=== PATIENT | female | born 1955 | race African-American/Black ===

== ENCOUNTER 2024-06-18 22:00 | Inpatient (IN) | payer MEDICARE, OTHER, MEDICAID ==
[~2024-06-18] VITALS: Ht 162.6 cm; Wt 73.9 kg
[2024-06-18 22:00] VITALS: BP 123/63; PULSE 80; RESP 18; TEMP 99.9; O2SAT 98
[2024-06-18 22:45] VITALS: BP 123/63; PULSE 80; RESP 18; TEMP 99.9
[2024-06-18] MEDS ORDERED: LORAZEPAM 0.5MG TABLET PO PRN (22:45)
[2024-06-18] MEDS ORDERED: ACETAMINOPHEN 325MG TABLET PO PRN (22:45)
[2024-06-18] MEDS ORDERED: CLONIDINE 0.1MG TABLET PO PRN (22:45)
[2024-06-18] MEDS ORDERED: SENNOSIDES 8.6MG TABLET PO PRN (22:45)
[2024-06-18] MEDS ORDERED: ONDANSETRON HCL 4MG TABLET PO PRN (22:45)
[2024-06-18] MEDS ORDERED: DEXTROSE 50% WATER 50ML SYRINGE IV PRN (23:00)
[2024-06-19] MEDS: SODIUM CHLORIDE 0.9% 3ML FLUSH IVF SCH (06:00)
[2024-06-19] MEDS: BLOOD SUGAR DIAGNOSTIC STRIP TEST SCH (06:30)
[2024-06-19 07:58] LABS: BASOPHILS % 0.5 % (0.0-2.0); EOSINOPHILS % 0.5 % (0.0-5.0); HEMATOCRIT. 28.8 % (36.0-48.0); HEMOGLOBIN. 9.6 g/dL (12.0-16.0); LYMPHOCYTES % 30.6 % (20.0-50.0); MEAN CORPUSCULAR HEMOGLOBIN 30.9 pg (28.0-32.0); MEAN CORPUSCULAR HGB CONC 33.3 g/dL (31.0-37.0); MEAN CORPUSCULAR VOLUME 92.8 fL (81.0-99.0); NEUTROPHILS % 61.4 % (40.0-76.0); PLATELET 253 x1000/uL (130-400); RED CELL DISTRIBUTION WIDTH 12.7 % (11.6-14.6); WHITE BLOOD COUNT 7.2 x1000/uL (4.5-11.0)
[2024-06-19 08:00] VITALS: BP 137/76; PULSE 84; RESP 19; TEMP 97.7; O2SAT 98
[2024-06-19 08:04] LABS: CHLORIDE 109 mEq/L (98-107); POTASSIUM 4.1 mEq/L (3.5-5.1); SODIUM 140 mEq/L (136-145)
[2024-06-19 08:05] LABS: CARBON DIOXIDE 23 mEq/L (21-32)
[2024-06-19 08:10] LABS: CREATININE 1.5 mg/dL (0.6-1.0); GLUCOSE 190 mg/dL (70-105)
[2024-06-19 08:11] LABS: UREA NITROGEN BLOOD 22 mg/dL (9-23)
[2024-06-19 08:12] LABS: ALANINE AMINOTRANSFERASE 21 IU/L (10-49); ALBUMIN 4.6 g/dL (3.2-4.8); ASPARTATE AMINOTRANSFERASE 20 IU/L (<34)
[2024-06-19 08:13] LABS: BILIRUBIN TOTAL 0.3 mg/dL (0.1-1.0); PROTEIN TOTAL 6.9 g/dL (6.0-8.3)
[2024-06-19] MEDS: AMLODIPINE 5MG TABLET PO SCH (09:49)
[2024-06-19] MEDS: DOCUSATE SODIUM SUGAR FREE 100MG/10ML UDC NG SCH (09:49)
[2024-06-19] MEDS: PANTOPRAZOLE 40MG DR TABLET PO SCH (09:49)
[2024-06-19] MEDS: INSULIN LISPRO 100 UNITS/ML SUBCUT SCH (09:55)
[2024-06-19] MEDS: LORAZEPAM 0.5MG TABLET PO PRN (12:38)
[2024-06-19] MEDS: ACETAMINOPHEN 325MG TABLET PO PRN (17:49)
[2024-06-19 20:00] VITALS: BP 119/57; PULSE 81; RESP 18; TEMP 98.2; O2SAT 99
[2024-06-19] MEDS: ATORVASTATIN CALCIUM 40MG TABLET PO SCH (20:55)
[2024-06-19] MEDS: HYDROCODONE/ACETAMINOPHEN 5/325MG TABLET PO PRN (21:07)
[2024-06-20 08:00] VITALS: BP 135/71; PULSE 81; RESP 20; TEMP 97.6; O2SAT 100
[2024-06-20] MEDS: LACTULOSE 20G/30ML UDC PO NR (19:08)
[2024-06-20 20:00] VITALS: BP 130/70; PULSE 89; RESP 19; TEMP 97.9; O2SAT 96
[2024-06-20] MEDS: LORAZEPAM 0.5MG TABLET PO PRN (23:32)
[2024-06-21 08:06] VITALS: BP 129/59; PULSE 83; RESP 18; TEMP 97.8; O2SAT 99
[2024-06-21] MEDS: LACTULOSE 20G/30ML UDC PO PRN (08:09)
[2024-06-21] MEDS ORDERED: NALOXONE HCL 0.4MG/ML VIAL IV PRN (12:00)
[2024-06-21 20:00] VITALS: BP 134/81; PULSE 93; RESP 20; TEMP 97.9; O2SAT 98
[2024-06-21] MEDS: GABAPENTIN 300MG CAPSULE PO SCH (21:43)
[2024-06-22 08:00] VITALS: BP 137/87; PULSE 89; RESP 18; TEMP 97; O2SAT 98
[2024-06-22 08:18] VITALS: BP 137/87; PULSE 89; RESP 18; TEMP 97; O2SAT 98
[2024-06-22] MEDS: METFORMIN HCL 500MG TABLET PO SCH (16:24)
[2024-06-22 20:00] VITALS: BP 148/88; PULSE 96; RESP 18; TEMP 98.7; O2SAT 98
[2024-06-22] MEDS: GABAPENTIN 400MG CAPSULE PO SCH (21:24)
[2024-06-23 08:00] VITALS: BP 131/81; PULSE 90; RESP 18; TEMP 98.2; O2SAT 99
[2024-06-23 20:00] VITALS: BP 130/82; PULSE 102; RESP 18; TEMP 98.6; O2SAT 95
[2024-06-24 08:00] VITALS: BP 112/75; PULSE 111; RESP 18; TEMP 96.8; O2SAT 97
[2024-06-24] MEDS: LINAGLIPTIN 5MG TABLET PO SCH (12:00)
[2024-06-24 20:00] VITALS: BP 142/76; PULSE 108; RESP 18; TEMP 99.1; O2SAT 97
[2024-06-24] MEDS: DOCUSATE SODIUM SUGAR FREE 100MG/10ML UDC PO SCH (21:56)
[2024-06-24] MEDS: SENNOSIDES 8.6MG TABLET PO SCH (21:57)
[2024-06-24] MEDS: INSULIN GLARGINE 100 UNITS/ML SUBCUT SCH (22:02)
[2024-06-25 08:00] VITALS: BP 126/58; PULSE 80; RESP 18; TEMP 97.5; O2SAT 100
[2024-06-25 11:53] VITALS: BP 126/86; PULSE 98; TEMP 98; O2SAT 100
[2024-06-25] MEDS: LORAZEPAM 1MG TABLET PO PRN (14:18)
[2024-06-25 20:00] VITALS: BP 112/71; PULSE 97; RESP 18; TEMP 97.3; O2SAT 97
[2024-06-26 08:00] VITALS: BP 125/78; PULSE 100; RESP 19; TEMP 97.5; O2SAT 97
[2024-06-26] MEDS ORDERED: NON FORMULARY PATIENT HOME MED PO SCH (09:00)
[2024-06-26] MEDS: DIPHENHYDRAMINE 50MG CAPSULE PO PRN (19:17)
[2024-06-26 20:00] VITALS: BP 129/61; PULSE 96; RESP 18; TEMP 97.7; O2SAT 98
[2024-06-26] MEDS: HYDROCODONE/ACETAMINOPHEN 5/325MG TABLET PO PRN (20:47)
[2024-06-27] MEDS ORDERED: NALOXONE HCL 0.4MG/ML VIAL IV PRN (12:00)
[2024-06-27 20:00] VITALS: BP 123/96; PULSE 105; RESP 19; TEMP 97.3; O2SAT 97
[2024-06-28 08:00] VITALS: BP 112/74; PULSE 107; RESP 20; TEMP 98.3; O2SAT 99
[2024-06-28 20:00] VITALS: BP 124/83; PULSE 102; RESP 19; TEMP 97.1; O2SAT 97
[2024-06-28] MEDS: SERTRALINE HCL 25MG TABLET PO SCH (21:30)
[2024-06-28] MEDS: MELATONIN 3MG TABLET PO SCH (21:31)
[2024-06-29 08:00] VITALS: BP 166/95; PULSE 109; RESP 20; TEMP 98; O2SAT 99
[2024-06-29] MEDS: MAGNESIUM/ALUMINUM HYDROXIDE/SIMETHICONE 30ML UDC PO PRN (16:11)
[2024-06-29 20:00] VITALS: BP 125/73; PULSE 102; RESP 17; TEMP 97.9; O2SAT 97
[2024-06-30 08:00] VITALS: BP 137/68; PULSE 88; RESP 20; TEMP 97.5; O2SAT 96
[2024-06-30] MEDS: LORAZEPAM 1MG TABLET PO PRN (16:54)
[2024-06-30 20:00] VITALS: BP 128/81; PULSE 98; RESP 18; TEMP 97.7; O2SAT 98
[2024-06-30] MEDS: HYDROCODONE/ACETAMINOPHEN 5/325MG TABLET PO PRN (21:50)
[2024-07-01 07:22] LABS: POTASSIUM 4.1 mEq/L (3.5-5.1)
[2024-07-01 07:23] LABS: CALCIUM 9.7 mg/dL (8.7-10.4)
[2024-07-01 07:28] LABS: CREATININE 1.5 mg/dL (0.6-1.0)
[2024-07-01 07:37] LABS: HEMATOCRIT 30.8 % (36.0-48.0); HEMOGLOBIN 10.1 g/dL (12.0-16.0); MEAN CORPUSCULAR HEMOGLOBIN 30.1 pg (28.0-32.0); MEAN CORPUSCULAR HGB CONC 32.7 g/dL (31.0-37.0); MEAN CORPUSCULAR VOLUME 92.1 fL (81.0-99.0); PLATELET 381 x1000/uL (130-400); RED BLOOD CELL COUNT 3.34 mill/uL (4.2-5.4); WHITE BLOOD COUNT 5.5 x1000/uL (4.5-11.0)
[2024-07-01 08:00] VITALS: BP 142/80; PULSE 99; RESP 18; TEMP 97.2; O2SAT 97
[2024-07-01] MEDS: BISACODYL 10MG SUPP PR PRN (13:53)
[2024-07-01 20:00] VITALS: BP 124/68; PULSE 96; RESP 18; TEMP 97; O2SAT 92
[2024-07-02 08:00] VITALS: BP 114/72; PULSE 90; RESP 20; TEMP 97.3; O2SAT 99
[2024-07-02 20:00] VITALS: BP 121/73; PULSE 99; RESP 19; TEMP 98.4; O2SAT 96
[2024-07-03 08:00] VITALS: BP 138/81; PULSE 101; RESP 20; TEMP 98.2; O2SAT 99
[2024-07-03 20:00] VITALS: BP 155/73; PULSE 95; RESP 18; TEMP 99.9; O2SAT 95
[2024-07-04 08:00] VITALS: BP 131/73; PULSE 96; RESP 20; TEMP 97.8; O2SAT 99
[2024-07-04] MEDS ORDERED: NALOXONE HCL 0.4MG/ML VIAL IV PRN (09:30)
[2024-07-04] MEDS: HYDROCODONE/ACETAMINOPHEN 5/325MG TABLET PO PRN (13:13)
[2024-07-04 20:00] VITALS: BP 144/82; PULSE 94; RESP 19; TEMP 98; O2SAT 95
[2024-07-05 08:24] VITALS: BP 159/93; PULSE 99; RESP 20; TEMP 97.9; O2SAT 97
[2024-07-05 09:30] VITALS: BP 129/78
[2024-07-05 20:00] VITALS: BP 131/88; PULSE 94; RESP 18; TEMP 97.7; O2SAT 97
[2024-07-06 08:00] VITALS: BP 123/74; PULSE 92; RESP 19; TEMP 97.8; O2SAT 99
[2024-07-06 08:41] VITALS: BP 123/74; PULSE 92; RESP 19; TEMP 97.8; O2SAT 99
[2024-07-06 20:00] VITALS: BP 144/90; PULSE 97; RESP 18; TEMP 99
[2024-07-07 08:00] VITALS: BP 118/65; PULSE 96; RESP 20; TEMP 98.4; O2SAT 95
[2024-07-07 20:00] VITALS: BP 141/83; PULSE 98; RESP 18; TEMP 97.2; O2SAT 95
[2024-07-07] MEDS ORDERED: LORAZEPAM 1MG TABLET PO PRN (20:00)
[2024-07-08 08:00] VITALS: BP 135/73; PULSE 86; RESP 18; TEMP 97.3; O2SAT 98
[2024-07-08 14:13] VITALS: BP 126/86; PULSE 86; TEMP 97.3; O2SAT 98
== END 2024-07-08 15:15 | disposition home health service (06) | DRG 64 ==
PROVIDERS: ADMIT Psychiatry & Neurology Neurology; ATTEND Internal Medicine
DX: I63.9 Cerebral infarction, unspecified (principal); K25.4 Chronic or unspecified gastric ulcer with hemorrhage; N17.9 Acute kidney failure, unspecified; D64.9 Anemia, unspecified; E78.00 Pure hypercholesterolemia, unspecified; F32.A Depression, unspecified; F41.1 Generalized anxiety disorder; G89.29 Other chronic pain; E03.9 Hypothyroidism, unspecified; E11.22 Type 2 diabetes mellitus with diabetic chronic kidney disease; E11.42 Type 2 diabetes mellitus with diabetic polyneuropathy; G24.01 Drug induced subacute dyskinesia; K44.9 Diaphragmatic hernia without obstruction or gangrene; M54.9 Dorsalgia, unspecified; R05.9 Cough, unspecified; R06.00 Dyspnea, unspecified; R07.9 Chest pain, unspecified; R53.1 Weakness; N18.9 Chronic kidney disease, unspecified; I12.9 Hypertensive chronic kidney disease with stage 1 through stage 4 chronic kidney disease, or unspecified chronic kidney disease; Z91.148 Patient's other noncompliance with medication regimen for other reason; Z79.4 Long term (current) use of insulin; Z79.84 Long term (current) use of oral hypoglycemic drugs; Z79.899 Other long term (current) drug therapy
CPT/HCPCS: 36415; 80048; 80053; 82962; 85025; 85027; 92523; 92610; 97110; 97112; 97116; 97150; 97162; 97166; 97530; 97535; 97542; J1815; Q0163